=== PATIENT | male | born 1950 | race Caucasian/White ===

== ENCOUNTER → 2021-03-19 | Outpatient (CLI) | payer BC ==
--- NOTE | 2021-03-19 08:42 | US ---
EXAMINATION TYPE: US duplex aorta DATE OF EXAM: 03/19/2021 COMPARISON: NONE CLINICAL HISTORY: Z13.16 Screening for cardiovascular disorders. EXAM MEASUREMENTS: Abdominal Aorta: Proximal: 3.2 x 3.3 cm Mid: 2.8 x 3.0 cm Distal: 3.9 x 3.8 cm Bifurcation: rt, 1.8 x 2.0 cm lt 1.7 x 2.0 cm Proximal and distal AAA. 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 Th e larger aneurysm is in the distal abdominal aorta measuring up to 3.9 cm axially
== END | disposition home or self-care (01) ==
LOC: RADUSWWP 08:10
PROVIDERS: ATTEND Family Medicine
DX: I71.4 Abdominal aortic aneurysm, without rupture (principal)
CPT/HCPCS: 93979

== ENCOUNTER → 2021-03-25 | Outpatient (CLI) | payer BC ==
--- NOTE | 2021-03-26 13:12 | ECHOF ---
Referral Reason:I10 hypertension MEASUREMENTS -------- HEIGHT: 185.4 cm WEIGHT: 102.5 kg BP: 133/70 RVIDd: 3.4 cm (< 3.3) IVSd: 1.3 cm (0.6 - 1.1) LVIDd: 4.9 cm (3.9 - 5.3) LVPWd: 1.1 cm (0.6 - 1.1) IVSs: 1.8 cm LVIDs: 2.5 cm LVPWs: 1.6 cm LA Diam: 3.4 cm (2.7 - 3.8) LAESV Index (A-L): 30.28 ml/m Ao Diam: 4.1 cm (2.0 - 3.7) AV Cusp: 2.1 cm (1.5 - 2.6) MV EXCURSION: 15.271 mm (> 18.000) MV EF SLOPE: 73 mm/s (70 - 150) EPSS: 0.3 cm MV E Isidro: 1.05 m/s MV DecT: 263 ms MV A Isidro: 1.14 m/s MV E/A Ratio: 0.92 AV maxP.77 mmHg AV meanP.25 mmHg RAP: 5.00 mmHg RVSP: 32.02 mmHg FINDINGS -------- Sinus rhythm. This was a technically adequate study. The left ventricular size is normal. There is mild concentric left ventricular hypertrophy. Overa ll left ventricular systolic function is normal with, an EF between 60 - 65 %. The right ventricle is mildly enlarged. LA is midly dilated 29-33ml/m2. The right atrium is normal in size. Interatrial and interventricular septum intact. Aortic valve is trileaflet and is mildly thickened. There is trace to mild mitral regurgitation. Mild tricuspid regurgitation present. Right ventricular systolic pressure is normal at < 35 mmHg. There is no pulmonic regurgitation present. The aortic root is dilated measuring 4.1cm. Normal inferior vena cava with normal inspiratory collapse consistent with estimated right atrial pre ssure of 5 mmHg. There is no pericardial effusion. CONCLUSIONS -------- 1. The left ventricular size is normal. 2. There is mild concentric left ventricular hypertrophy. 3. Overall left ventricular systolic function is normal with, an EF between 60 - 65 %. 4. The right ventricle is mildly enlarged. 5. LA is midly dilated 29-33ml/m2. 6. Aortic valve is trileaflet and is mildly thickened. 7. There is trace to mild mitral regurgitation. 8. Mild tricuspid regurgitation present. 9. The aortic root is dilated measuring 4.1cm. 10. There is no pericardial effusion. LOG STACKER OPERATOR: Shital Hutchison RDCS
== END | disposition home or self-care (01) ==
LOC: RADECHMAIN 13:38
PROVIDERS: ATTEND Family Medicine
DX: I08.1 Rheumatic disorders of both mitral and tricuspid valves (principal); I10 Essential (primary) hypertension
CPT/HCPCS: 93306

== ENCOUNTER 2021-09-20 12:14 | Day surgery (SDC) | payer BC ==
[2021-09-19 11:00] VITALS: BMI 30.5
[2021-09-20 12:34] VITALS: TEMP 97
[2021-09-20] MEDS ORDERED: LACTATED RINGERS 1,000 ML IV ONE ×2 (12:37)
[2021-09-20] MEDS ORDERED: PROPOFOL 10 MG/ML 20 ML VIAL IV ONE (12:41)
--- NOTE | 2021-09-20 12:55 | P.PCN ---
Date of Procedure: 09/20/21 Procedure(s) Performed: BRIEF HISTORY: Patient is a 70-year-old pleasant white male scheduled for an elective colonoscopy as a part of screening for colorectal neoplasia. His last colonoscopy was 14 years ago PROCEDURE PERFORMED: Colonoscopy. PREOPERATIVE DIAGNOSIS: Screening for colon cancer. IV sedation per Anesthesia. PROCEDURE: After informed consent was obtained, the patient, was brought into the endoscopy unit. IV sedation was administered by Anesthesia under continuous monitoring. Digital rectal examination was normal. Initially the Olympus CF-160 flexible video colonoscope was then inserted in the rectum, gradually advanced into the cecum without any difficulty. Careful examination was performed as the scope was gradually being withdrawn. Ileocecal valve and the appendiceal orifice were visualized and appeared normal. Prep was excellent. Mucosa of the cecum, ascending colon, transverse colon, descending colon, sigmoid colon, and rectum appeared normal. Retroflexion was performed in the rectum and no lesions were seen. Moderate sigmoid diverticulosis. The patient tolerated the procedure well. IMPRESSION: Normal-appearing colon from rectum to cecum with no evidence of colorectal neoplasia . Moderate sigmoid diverticulosis. RECOMMENDATIONS: Findings of this examination were discussed with the patient as well as his family. He was advised to have a repeat screening colonoscopy.
[2021-09-20 13:04] VITALS: RESP 16
[2021-09-20 13:16] VITALS: BP 140/85; PULSE 54
== END 2021-09-20 13:28 ==
LOC: ORWHC2ENDO 12:14
PROVIDERS: ATTEND Internal Medicine Gastroenterology
DX: Z12.11 Encounter for screening for malignant neoplasm of colon (principal); K57.30 Diverticulosis of large intestine without perforation or abscess without bleeding; K21.9 Gastro-esophageal reflux disease without esophagitis; Z97.2 Presence of dental prosthetic device (complete) (partial); Z88.1 Allergy status to other antibiotic agents
CPT/HCPCS: J2704; G0121

== ENCOUNTER 2022-02-03 07:50 | Emergency (ER) | payer BC ==
[2022-02-03 07:54] VITALS: BP 153/78; PULSE 54; RESP 16; TEMP 98
--- NOTE | 2022-02-03 08:14 | ED ---
General Adult HPI - General Chief complaint: ENT Stated complaint: epistaxis Time Seen by Provider: 02/03/22 07:56 Source: patient, family, RN notes reviewed Mode of arrival: ambulatory Limitations: no limitations - History of Present Illness Initial comments: Patient is a pleasant 71-year-old male presenting to the emergency Department with epistaxis. Patient has had several episodes over the past 2-3 days. Recurrences on the right side. Patient has been recently and an out of air conditioning. Patient did bump his nose at work recently and questions if that could've precipitated the events. Patient does have history of epistaxis as a child however otherwise does not get frequently. No current bleeding. No bleeding from other sites. - Related Data Home Medications Medication Instructions Recorded Confirmed Cholecalciferol [Vitamin D3 (25 25 mcg PO DAILY 09/19/21 09/20/21 Mcg = 1000 Iu)] Cyanocobalamin (Vitamin B-12) 1,000 mcg PO DAILY 09/19/21 09/20/21 [Vitamin B-12] Milk Thistle 150 mg PO DAILY 09/19/21 09/20/21 Turmeric/Curcumin 1 tab PO DAILY 09/19/21 09/20/21 Allergies Allergy/AdvReac Type Severity Reaction Status Date / Time cephalexin [From Keflex] Allergy Rash/Hives Verified 02/03/22 07:52 Review of Systems ROS Statement: Those systems with pertinent positive or pertinent negative responses have been documented in the HPI. ROS Other: All systems not noted in ROS Statement are negative. Constitutional: Denies: fever Eyes: Denies: eye pain ENT: Reports: epistaxis. Denies: ear pain Respiratory: Denies: dyspnea Cardiovascular: Denies: chest pain Endocrine: Denies: fatigue Gastrointestinal: Denies: abdominal pain Genitourinary: Denies: dysuria Musculoskeletal: Denies: back pain Skin: Denies: rash Neurological: Denies: weakness Past Medical History Past Medical History: Osteoarthritis (OA) Additional Past Medical History / Comment(s): past hx. colon polyps History of Any Multi-Drug Resistant Organisms: None Reported Additional Past Surgical History / Comment(s): colonoscopy Past Anesthesia/Blood Transfusion Reactions: No Reported Reaction Smoking Status: Current every day smoker General Exam Limitations: no limitations General appearance: alert, in no apparent distress Head exam: Present: normocephalic Eye exam: Present: normal appearance ENT exam: Present: other (Mild dried blood right nares. Area anterior nasal septum with small clot.) Respiratory exam: Present: normal lung sounds bilaterally Cardiovascular Exam: Present: regular rate, normal rhythm GI/Abdominal exam: Present: soft. Absent: tenderness Extremities exam: Present: normal inspection Neurological exam: Present: alert Psychiatric exam: Present: normal affect, normal mood Skin exam: Present: normal color Course Vital Signs 02/03/22 07:52 Temperature 98 F Pulse Rate 54 L Respiratory 16 Rate Blood Pressure 153/78 O2 Sat by Pulse 98 Oximetry Medical Decision Making - Medical Decision Making Patient was offered packing however refuses. Education given on epistaxis as well as nasal clamp. Disposition Clinical Impression: Epistaxis Disposition: HOME SELF-CARE Condition: Stable Instructions (If sedation given, give patient instructions): Nosebleed (ED) Additional Instructions: Please follow-up with primary care physician in the next day or 2 for recheck. If bleeding recurs, apply nasal clamp for 10 minutes. Twice daily gently moisturize nasal septum with Vaseline. Return for increased bleeding, uncontrolled bleeding, bleeding from other areas, worsening symptoms or other concerns. Is patient prescribed a controlled substance at d/c from ED?: No Referrals: Chris Heath MD [Primary Care Provider] - 1-2 days Time of Disposition: 08:14
== END 2022-02-03 08:22 | disposition home or self-care (01) ==
LOC: EC 07:50
DX: R04.0 Epistaxis (principal); Z88.1 Allergy status to other antibiotic agents; F17.200 Nicotine dependence, unspecified, uncomplicated

== ENCOUNTER 2023-10-26 18:50 | Emergency (ER) | payer BC ==
[2023-10-26 19:14] VITALS: TEMP 97.8
--- NOTE | 2023-10-26 19:45 | ED ---
General Adult HPI - General Chief complaint: Headache Stated complaint: high BP headache Time Seen by Provider: 10/26/23 19:11 Source: patient Mode of arrival: ambulatory Limitations: no limitations - History of Present Illness Initial comments: 72-year-old male presenting to the ED with a chief complaint of hypertension. Patient states over the past 2 to 3 days has had a left-sided headache. Currently states that it is a 2-3 out of 10 in severity. Due to headache, his checked his blood pressure which was found to be elevated in the 200s syst olic. Therefore, prompting presentation to the ED for further evaluation. At this time, patient denies chest pain, shortness of breath, palpitations. He reports that he does not see his PCP on a regular basis. States that he does not have a history of headaches. Denies abdominal pain, nausea, vomiting. Denies dizziness, lightheadedness. No changes in bowel or bladder habits. No other complaints at this time. Upon obtaining history, blood pressure noted to be 157/109. - Related Data Home Medications Medication Instructions Recorded Confirmed Cholecalciferol [Vitamin D3 (25 25 mcg PO DAILY 09/19/21 09/20/21 Mcg = 1000 Iu)] Cyanocobalamin (Vitamin B-12) 1,000 mcg PO DAILY 09/19/21 09/20/21 [Vitamin B-12] Milk Thistle 150 mg PO DAILY 09/19/21 09/20/21 Turmeric/Curcumin 1 tab PO DAILY 09/19/21 09/20/21 Previous Rx's Medication Instructions Recorded amLODIPine [Norvasc] 5 mg PO DAILY #30 tab 10/27/23 Allergies Allergy/AdvReac Type Severity Reaction Status Date / Time cephalexin [From Keflex] Allergy Rash/Hives Verified 10/26/23 18:54 Review of Systems ROS Statement: Those systems with pertinent positive or pertinent negative responses have been documented in the HPI. ROS Other: All systems not noted in ROS Statement are negative. Past Medical History Past Medical History: Osteoarthritis (OA) Additional Past Medical History / Comment(s): past hx. colon polyps History of Any Multi-Drug Resistant Organisms: None Reported Additional Past Surgical History / Comment(s): colonoscopy Past Anesthesia/Blood Transfusion Reactions: No Reported Reaction Smoking Status: Current every day smoker Past Alcohol Use History: Occasional Past Drug Use History: None Reported General Exam Limitations: no limitations General appearance: alert, in no apparent distress Eye exam: Present: normal appearance, PERRL, EOMI ENT exam: Present: mucous membranes moist Neck exam: Present: normal inspection Respiratory exam: Present: normal lung sounds bilaterally Cardiovascular Exam: Present: regular rate, normal rhythm, systolic murmur GI/Abdominal exam: Present: soft, normal bowel sounds. Absent: distended, tenderness, guarding, rebound, rigid Neurological exam: Present: alert, oriented X3, CN II-XII intact (Kpmicj-on-[id number], lvea-[id number], rapid alternating hand movements intact.) Skin exam: Present: warm, dry Course Vital Signs 10/26/23 10/26/23 10/26/23 18:51 20:00 22:04 Temperature 97.8 F Pulse Rate 646 H 61 81 Respiratory 18 16 16 Rate Blood Pressure 212/95 164/92 158/85 O2 Sat by Pulse 96 97 94 L Oximetry Medical Decision Making - Medical Decision Making Was pt. sent in by a medical professional or institution (, PA, [place] MACHINE OPERATOR, urgent care, hospital, or senior care...) When possible be specific @ -No Did you speak to anyone other than the patient for history (EMS, parent, family, police, friend...)? What history was obtained from this source @ -No Did you review nursing and triage notes (agree or disagree)? Why? @ -I reviewed and agree with nursing and triage notes Were old charts reviewed (outside hosp., previous admission, EMS record, old EKG, old radiological studies, urgent care reports/EKG's, senior care records)? Report findings @ -No old charts were reviewed Differential Diagnosis (chest pain, altered mental status, abdominal pain women, abdominal pain men, vaginal bleeding, weakness, fever, dyspnea, syncope, headache, dizziness, GI bleed, back pain, seizure, CVA, palpatations, mental health, musculoskeletal)? @ -Differential Chest Pain: Stable Angina, Unstable Angina, STEMI, NSTEMI Aortic Dissection, Pneumothorax, Musculoskeletal, Esophageal Spasm GERD, Cholecystitis, Pancreatitis, Zoster, this is not meant to be an all-inclusive list. EKG interpreted by me (3pts min.). @ -EKG interpreted by me showing a sinus rhythm at 61 bpm with a first-degree AV block with a OR interval at 226 ms. QRS 102, QT/QTc 409/412. X-rays interpreted by me (1pt min.). @ -Chest x-ray interpreted by me showing mild cardiomegaly with some pulmonary vascular congestion. CT interpreted by me (1pt min.). @ -CT brain interpreted me which revealed no evidence of acute finding. U/S interpreted by me (1pt. min.). @ -None done What testing was considered but not performed or refused? (CT, X-rays, U/S, labs)? Why? @ -None What meds were considered but not given or refused? Why? @ -None Did you discuss the management of the patient with other professionals (gilberto arrieta i.e. , PA, [place] MACHINE OPERATOR, lab, RT, psych nurse, social worker aide, wallpaper embosser helper, teacher, technology officer, case therapist)? Give summary @ -No Was smoking cessation discussed for >3mins.? @ -No Was critical care preformed (if so, how long)? @ -No Were there social determinants of health that impacted care today? How? (Homelessness, low income, unemployed, alcoholism, drug addiction, transportation, low edu. Level, literacy, decrease access to med. care, snf, rehab)? @ -No Was there de-escalation of care discussed even if they declined (Discuss DNR or withdrawal of care, Hospice)? DNR status @ -No What co-morbidities impacted this encounter? (DM, HTN, Smoking, COPD, CAD, Cancer, CVA, ARF, Chemo, Hep., AIDS, mental health diagnosis, sleep apnea, morbid obesity)? @ -None Was patient admitted / discharged? Hospital course, mention meds given and route, prescriptions, significant lab abnormalities, going to OR and other pertinent info. @ -Discharge 72-year-old male presented to the ED with complaints of hypertension. Has had headache for the past 2 to 3 days which she reports is 2 out of 3 in severity however no history of prior headaches. Noted he took his blood pressure due to headache and found it to be in the 200s systolic prompting presentation to the ED for further evaluation. While here in the ED, his blood pressure has remained stable in the 160s systolic. Laboratory studies reviewed. Labs including CBC, CMP, UA, serology panel largely unremarkable. Troponin undetectable. Chest x-ray showed mild cardiomegaly with some pulmonary vascular congestion. On exam his lungs are largely clear and patient has no complaints of respiratory distress. CT brain revealed no evidence of acute finding. Discharged home in stable condition with prescription for amlodipine. Advise close follow-up with his primary care provider. Discussed return precautions with patient who verbalized agreement. Undiagnosed new problem with uncertain prognosis? @ -No Drug Therapy requiring intensive monitoring for toxicity (Heparin, Nitro, Insulin, Cardizem)? @ -No Were any procedures done? @ -No Diagnosis/symptom? @ -Headache, hypertension Acute, or Chronic, or Acute on Chronic? @ -Acute Uncomplicated (without systemic symptoms) or Complicated (systemic symptoms)? @ -Complicated Side effects of treatment? @ -No Exacerbation, Progression, or Severe Exacerbation? @ -No Poses a threat to life or bodily function? How? (Chest pain, USA, SC, pneumonia, PE, COPD, DKA, ARF, appy, cholecystitis, CVA, Diverticulitis, Homicidal, Suicidal, threat to staff... and all critical care pts) @ -Unlikely - Lab Data Result diagrams: 10/26/23 19:44 10/26/23 19:44 Lab Results 10/26/23 10/26/23 10/26/23 Range/Units 19:44 19:44 19:44 WBC 10.8 H (3.8-10.6) k/uL RBC 4.67 (4.30-5.90) m/uL Hgb 14.3 (13.0-17.5) gm/dL Hct 42.5 (39.0-53.0) % MCV 91.1 (80.0-100.0) fL MCH 30.7 (25.0-35.0) pg MCHC 33.7 (31.0-37.0) g/dL RDW 12.3 (11.5-15.5) % Plt Count 318 (150-450) k/uL MPV 7.4 Neutrophils % 78 % Lymphocytes % 14 % Monocytes % 5 % Eosinophils % 1 % Basophils % 1 % Neutrophils # 8.5 H (1.3-7.7) k/uL Lymphocytes # 1.5 (1.0-4.8) k/uL Monocytes # 0.5 (0-1.0) k/uL Eosinophils # 0.1 (0-0.7) k/uL Basophils # 0.1 (0-0.2) k/uL PT 11.3 (10.0-12.5) sec INR 1.0 (<1.2) APTT 29.6 (22.0-30.0) sec Sodium 135 L (137-145) mmol/L Potassium 3.8 (3.5-5.1) mmol/L Chloride 101 (98-107) mmol/L Carbon Dioxide 28 (22-30) mmol/L Anion Gap 6 mmol/L BUN 17 (9-20) mg/dL Creatinine 0.77 (0.66-1.25) mg/dL Est GFR (CKD-EPI)AfAm >90 (>60 ml/min/1.73 sqM) Est GFR (CKD-EPI)NonAf >90 (>60 ml/min/1.73 sqM) Glucose 101 H (74-99) mg/dL Calcium 8.9 (8.4-10.2) mg/dL Magnesium 1.9 (1.6-2.3) mg/dL Total Bilirubin 0.7 (0.2-1.3) mg/dL AST 23 (17-59) U/L ALT 13 (4-49) U/L Alkaline Phosphatase 67 (38-126) U/L Troponin I (0.000-0.034) ng/mL Total Protein 6.7 (6.3-8.2) g/dL Albumin 3.8 (3.5-5.0) g/dL Urine Color Urine Appearance (Clear) Urine pH (5.0-8.0) Ur Specific [place] (1.001-1.035) Urine Protein (Negative) Urine Glucose (UA) (Negative) Urine Ketones (Negative) Urine Blood (Negative) Urine Nitrite (Negative) Urine Bilirubin (Negative) Urine Urobilinogen (<2.0) mg/dL Ur Leukocyte Esterase (Negative) Urine RBC (0-5) /hpf Urine WBC (0-5) /hpf Urine Mucus (None) /hpf Influenza Type A (PCR) (Not Detectd) Influenza Type B (PCR) (Not Detectd) RSV (PCR) (Not Detectd) SARS-CoV-2 (PCR) (Not Detectd) 10/26/23 10/26/23 10/26/23 Range/Units 19:44 19:44 20:00 WBC (3.8-10.6) k/uL RBC (4.30-5.90) m/uL Hgb (13.0-17.5) gm/dL Hct (39.0-53.0) % MCV (80.0-100.0) fL MCH (25.0-35.0) pg MCHC (31.0-37.0) g/dL RDW (11.5-15.5) % Plt Count (150-450) k/uL MPV Neutrophils % % Lymphocytes % % Monocytes % % Eosinophils % % Basophils % % Neutrophils # (1.3-7.7) k/uL Lymphocytes # (1.0-4.8) k/uL Monocytes # (0-1.0) k/uL Eosinophils # (0-0.7) k/uL Basophils # (0-0.2) k/uL PT (10.0-12.5) sec INR (<1.2) APTT (22.0-30.0) sec Sodium (137-145) mmol/L Potassium (3.5-5.1) mmol/L Chloride (98-107) mmol/L Carbon Dioxide (22-30) mmol/L Anion Gap mmol/L BUN (9-20) mg/dL Creatinine (0.66-1.25) mg/dL Est GFR (CKD-EPI)AfAm (>60 ml/min/1.73 sqM) Est GFR (CKD-EPI)NonAf (>60 ml/min/1.73 sqM) Glucose (74-99) mg/dL Calcium (8.4-10.2) mg/dL Magnesium (1.6-2.3) mg/dL Total Bilirubin (0.2-1.3) mg/dL AST (17-59) U/L ALT (4-49) U/L Alkaline Phosphatase (38-126) U/L Troponin I <0.012 (0.000-0.034) ng/mL Total Protein (6.3-8.2) g/dL Albumin (3.5-5.0) g/dL Urine Color Light Yellow Urine Appearance Clear (Clear) Urine pH 6.0 (5.0-8.0) Ur Specific [place] 1.013 (1.001-1.035) Urine Protein 1+ H (Negative) Urine Glucose (UA) Negative (Negative) Urine Ketones Negative (Negative) Urine Blood Negative (Negative) Urine Nitrite Negative (Negative) Urine Bilirubin Negative (Negative) Urine Urobilinogen <2.0 (<2.0) mg/dL Ur Leukocyte Esterase Negative (Negative) Urine RBC 1 (0-5) /hpf Urine WBC 1 (0-5) /hpf Urine Mucus Rare H (None) /hpf Influenza Type A (PCR) Not Detected (Not Detectd) Influenza Type B (PCR) Not Detected (Not Detectd) RSV (PCR) Not Detected (Not Detectd) SARS-CoV-2 (PCR) Not Detected (Not Detectd) Disposition Clinical Impression: Hypertension, Headache Disposition: HOME SELF-CARE Condition: Good Instructions (If sedation given, give patient instructions): Hypertensive Crisis (ED) Additional Instructions: Please return to the Emergency Department if symptoms worsen or any other concerns. Please follow-up with your primary care provider. Prescriptions: amLODIPine [Norvasc] 5 mg PO DAILY #30 tab Is patient prescribed a controlled substance at d/c from ED?: No Referrals: Chris Heath MD [Primary Care Provider] - 1-2 days Time of Disposition: 00:53
[2023-10-26 19:51] LABS: Basophils # (A) 0.1 k/uL (0-0.2); Basophils % (A) 1 %; Eosinophils # (A) 0.1 k/uL (0-0.7); Eosinophils % (A) 1 %; HCT 42.5 % (39.0-53.0); HGB 14.3 gm/dL (13.0-17.5); Lymphocytes # (A) 1.5 k/uL (1.0-4.8); Lymphocytes % (A) 14 %; MCH 30.7 pg (25.0-35.0); MCHC 33.7 g/dL (31.0-37.0); MCV 91.1 fL (80.0-100.0); Mean Platelet Volume 7.4; Monocytes # (A) 0.5 k/uL (0-1.0); Monocytes % (A) 5 %; Neutrophils # (A) 8.5 k/uL (1.3-7.7); Neutrophils % (A) 78 %; Platelet Count 318 k/uL (150-450); RBC 4.67 m/uL (4.30-5.90); RDW 12.3 % (11.5-15.5); WBC 10.8 k/uL (3.8-10.6)
[2023-10-26 20:01] LABS: ALT 13 U/L (4-49); AST 23 U/L (17-59); African American GFR (CKD) >90 (>60 ml/min/1.73 sqM); Albumin 3.8 g/dL (3.5-5.0); Alkaline Phosphatase 67 U/L (38-126); Anion Gap 6 mmol/L; Blood Urea Nitrogen 17 mg/dL (9-20); Calcium 8.9 mg/dL (8.4-10.2); Carbon Dioxide 28 mmol/L (22-30); Chloride 101 mmol/L (98-107); Glucose 101 mg/dL (74-99); Magnesium 1.9 mg/dL (1.6-2.3); Non-African American GFR(CKD) >90 (>60 ml/min/1.73 sqM); Potassium 3.8 mmol/L (3.5-5.1); Sodium 135 mmol/L (137-145); Total Bilirubin 0.7 mg/dL (0.2-1.3); Total Protein 6.7 g/dL (6.3-8.2)
[2023-10-26 20:14] LABS: Partial Thromboplastin Time 29.6 sec (22.0-30.0); Prothrombin Time 11.3 sec (10.0-12.5)
[2023-10-26 20:25] LABS: Appearance,Urine Clear (Clear); Bilirubin,Urine Negative (Negative); Blood,Urine Negative (Negative); Color,Urine Light Yellow; Glucose,Urine (UA) Negative (Negative); Ketones,Urine Negative (Negative); Leukocyte Esterase,Urine Negative (Negative); Mucus,Urine Rare /hpf; Nitrite,Urine Negative (Negative); Protein,Urine 1+ (Negative); RBC,Urine 1 /hpf (0-5); Specific Gravity,Urine 1.013 (1.001-1.035); Urobilinogen,Urine <2.0 mg/dL (<2.0); WBC,Urine 1 /hpf (0-5)
--- NOTE | 2023-10-26 22:13 | CT ---
EXAMINATION TYPE: CT brain wo con CT DLP: 1148.4 mGycm, Automated exposure control for dose reduction was used. DATE OF EXAM: 10/26/2023 9:45 PM COMPARISON: None. CLINICAL INDICATION:Male, 72 years old with history of left sided YODER, pt states he has a sinus headac he, checked bp at home and it was high. no hx of htn TECHNIQUE: Brain: Axial CT images of the brain were obtained with coronal and sagittal reformats created and rev iewed. Contrast used: None. Oral contrast used: None. FINDINGS: Extra-axial spaces: No abnormal extra-axial fluid collections. Ventricular system: Ventricles appear dilated in proportion to the degree of cerebral atrophy. Cerebral parenchyma: No increased attenuation to suggest acute intraparenchymal hemorrhage. The gra y-white matter interface appears maintained. Mild/moderate generalized brain atrophy. Scattered hyp oattenuating areas are seen within the cerebral white matter, nonspecific but most often seen with ch ronic microvascular ischemic changes; mild/moderate in degree. Cerebellum: No acute abnormality. Mass effect: No evidence of mass effect or midline shift. Intracranial vasculature: Atherosclerotic calcifications of the larger arteries near the skull base. Soft tissues: No acute or concerning abnormality. Visualized orbits: Orbital contents appear grossly intact. Calvarium/osseous structures: No evidence of calvarial fracture. Paranasal sinuses and mastoid air cells: Clear. Nasal septal deviation towards the left with osseous spur in its midportion. MRI is more sensitive for detecting acute processes such as infarct, and may be considered if clinica lly warranted. IMPRESSION: 1. No CT evidence of an acute intracranial abnormality. 2. Atrophy and chronic microvascular ischemic white matter changes.
--- NOTE | 2023-10-27 00:19 | XR ---
EXAMINATION TYPE: XR chest 2V DATE OF EXAM: 10/26/2023 8:08 PM CLINICAL INDICATION:Male, 72 years old with history of hypertensive urgency; [facility] COMPARISON: None TECHNIQUE: XR chest 2V. Frontal and lateral views of the chest.. FINDINGS: Lines/Tubes/Devices: No indwelling lines are seen. EKG leads overlie the chest. Heart/mediastinum: Heart appears mildly enlarged. Tortuous aorta with atherosclerotic calcification. Pulmonary vascularity: Pulmonary vascular congestion. Increased interstitial markings can be seen wit h edema or pneumonitis. An element of chronic change is possible. Lungs/Pleura: There is no evidence of pleural effusion, focal consolidation, or pneumothorax. Musculoskeletal: No acute osseous abnormality demonstrated in the limits of the exam. Other findings: None. IMPRESSION: Mild cardiomegaly, with mild central vascular congestive changes.
[2023-10-27 01:28] VITALS: BP 152/93; PULSE 73; RESP 18
== END 2023-10-27 01:04 | disposition home or self-care (01) ==
LOC: EC 18:50
DX: I11.9 Hypertensive heart disease without heart failure (principal); I44.30 Unspecified atrioventricular block; F17.200 Nicotine dependence, unspecified, uncomplicated; Z88.1 Allergy status to other antibiotic agents
CPT/HCPCS: 36415; 70450; 71046; 80053; 81001; 83735; 84484; 85025; 85610; 85730; 87636; 93005; 99285

== ENCOUNTER → 2023-11-13 | Outpatient (CLI) | payer BC ==
--- NOTE | 2023-11-13 10:51 | US ---
EXAMINATION TYPE: US duplex aorta DATE OF EXAM: 11/13/2023 COMPARISON: 03/19/2021 CLINICAL INDICATION: Male, 72 years old with history of I71.40 ABDOMINAL AORTIC ANEURYSM, WITHOUT RUP TURE,; Hx AAA measuring 3.9 cm in 2020. Smoker, hypertension. TECHNIQUE: Multiple sonographic images of the abdominal aorta are obtained. FINDINGS: EXAM MEASUREMENTS: Abdominal Aorta: Proximal: 3.6 x 2.9 cm Mid: 3.3 x 3.7 cm Distal: 4.4 x 4.7 cm Bifurcation: Right Iliac: 1.4 x 1.3 cm Left Iliac: 1.4 x x 1.6 cm ASSOCIATE SCIENTIST NOTES: Aneurysm seen prox, mid, and distal aorta. Distal aorta measures 4.4 in AP and 4. 7 in width. Left iliac artery is slightly dilated. Exam is limited due to gas. IMPRESSION: Aorta dilation up to 4.7 cm distally. Further evaluation with CTA of the aorta is recommended.
--- NOTE | 2023-11-13 17:02 | CA ---
Transthoracic Echo Report Name: Thomas Medellin Age: 72 Gender: M : 1950 Exam Date: 11/13/2023 10:44 Exam Location: [place] Ht (in): 73 Wt (lb): 218 Ordering Physician: Chris Heath MD Attending/Referring Phys: Lor Crawford [facility] At Risk Specialist Ina Long RDCS Procedure CPT: Indications: I10 hypertention Cardiac Hx: Technical Quality: Contrast 1: Total Dose (mL): Contrast 2: Total Dose (mL): MEASUREMENTS (Male / Female) Normal Values 2D ECHO LV Diastolic Diameter PLAX 4.4 cm 4.2 - 5.9 / 3.9 - 5.3 cm LV Systolic Diameter PLAX 3.4 cm IVS Diastolic Thickness 1.4 cm 0.6 - 1.0 / 0.6 - 0.9 cm LVPW Diastolic Thickness 1.4 cm 0.6 - 1.0 / 0.6 - 0.9 cm LV Relative Wall Thickness 0.6 RV Internal Dim ED PLAX 2.7 cm Aortic Root Diameter 3.8 cm LA Systolic Diameter LX 2.7 cm 3.0 - 4.0 / 2.7 - 3.8 cm LV Diastolic Volume MOD BP 117.2 cm??? 67 - 155 / 56 - 104 cm??? LV Systolic Volume MOD BP 51.0 cm??? - 58 / 19 - 49 cm??? LV Ejection Fraction MOD BP 56.5 % >= 55 % LV Cardiac Index MOD BP 1454.2 cm???/min???m??? LV Diastolic Volume MOD 4C 124.6 cm??? LV Systolic Volume MOD 4C 57.1 cm??? LV Ejection Fraction MOD 4C 54.2 % LV Cardiac Index MOD 4C 1482.8 cm???/min???m??? LV Diastolic Length 4C 8.5 cm LV Systolic Length 4C 7.3 cm LV Diastolic Volume MOD 2C 110.5 cm??? LV Systolic Volume MOD 2C 43.4 cm??? LV Ejection Fraction MOD 2C 60.8 % LV Cardiac Index MOD 2C 1475.8 cm???/min???m??? LV Diastolic Length 2C 8.3 cm LV Systolic Length 2C 6.9 cm LA Volume 44.7 cm??? 18 - 58 / 22 - 52 cm??? LA Volume Index 19.7 cm???/m??? 16 - 28 cm???/m??? M-MODE Aortic Root Diameter MM 3.9 cm LA Systolic Diameter MM 2.5 cm LA Ao Ratio MM 0.7 DOPPLER AV Peak Velocity 176.4 cm/s AV Peak Gradient 12.4 mmHg LVOT Peak Velocity 113.8 cm/s LVOT Peak Gradient 5.2 mmHg LVOT Velocity Time Integral 25.6 cm MV Area PHT 2.5 cm??? Mitral E Point Velocity 66.3 cm/s Mitral A Point Velocity 86.2 cm/s Mitral E to A Ratio 0.8 MV Deceleration Time 298.3 ms MV E' Velocity 6.5 cm/s Mitral E to MV E' Ratio 10.2 TR Peak Velocity 211.5 cm/s TR Peak Gradient 17.9 mmHg Right Ventricular Systolic Press 22.6 mmHg FINDINGS Left Ventricle Left ventricular ejection fraction is estimated at 55-60 %. Moderately increased septal wall thickness. Normal left ventricular systolic function with no obvious regional wall motion abnormalities. Left ventricular cavity size normal. Right Ventricle Normal right ventricular size and function. Right Atrium Normal right atrial size. Left Atrium Left atrial size at the upper limits of normal. Mitral Valve Structurally normal mitral valve. Mild mitral regurgitation. Aortic Valve Trileaflet aortic valve. Focal thickening of the aortic valve cusps. Aortic valve sclerosis. No aortic regurgitation. No aortic stenosis. Tricuspid Valve Structurally normal tricuspid valve. Mild tricuspid regurgitation. No evidence of pulmonary hypertension. Pulmonic Valve Structurally normal pulmonic valve. No pulmonic stenosis. Trace pulmonic regurgitation. Pericardium Normal pericardium. Aorta Mildly dilated aortic annulus. CONCLUSIONS Normal LV function Aortic sclerosis without significant stenosis Aortic valve leaflet appears thickened and calcified Previewed by: Dr. Ashok Romero MD (Electronically Signed) Final Date: 13 November 2023 17:01
== END | disposition home or self-care (01) ==
LOC: RADUSWWP 10:06
PROVIDERS: ATTEND Family Medicine
DX: I71.40 Abdominal aortic aneurysm, without rupture, unspecified (principal); I35.8 Other nonrheumatic aortic valve disorders; I10 Essential (primary) hypertension; F17.200 Nicotine dependence, unspecified, uncomplicated
CPT/HCPCS: 93306; 93979

== ENCOUNTER → 2023-11-20 | Outpatient (CLI) | payer BC ==
[2023-11-20 15:42] LABS: African American GFR (CKD) >90 (>60 ml/min/1.73 sqM); Blood Urea Nitrogen 16 mg/dL (9-20); Non-African American GFR(CKD) >90 (>60 ml/min/1.73 sqM)
--- NOTE | 2023-11-20 19:01 | CT ---
CTA CHEST EXAMINATION TYPE: CT angio chest DATE OF EXAM: 11/20/2023 INDICATION: Aortic aneurysm of unspecified site w/o rupture. CT DLP: 948.6 mGycm, Automated exposure control for dose reduction was used. CONTRAST: Patient injected with 100ml mL of Isovue 370. COMPARISON: None TECHNIQUE: CT of the chest is performed on a spiral scan at 2 mm thick sections. Study is performed with intravenous contrast timed for evaluation for aorta.. This will limit additional portions of th e evaluation. FINDINGS: No persistent filling defects are evident to suggest an acute pulmonary embolism. No mediastinal or hilar adenopathy enlarged by CT criteria is evident. Aortic root measures 3.4 cm. The ascending aorta diameter at the level of the main pulmonary artery i s 3.9 cm. The main pulmonary artery diameter at the bifurcation is 3.1 cm. Transverse dimension aor tic arch 2.9 cm. Posterior aortic arch appears somewhat prominent measuring 3.9 cm. This tapers in th e descending thoracic aorta. Thoracic aorta at the diaphragm measures 3.2 cm. 3-D reconstructed images of the thoracic aorta are performed. There is a three-vessel arch. There is a normal density which measures 0.9 cm in length posterior right apex. Series [address] sections were through the upper abdomen. There is partial visualization of a abdominal aortic aneurysm measuring 4.2 cm. This extends out of t he field of view. Recommend CT abdomen and pelvis with contrast to evaluate the abdominal aortic aneu rysm. IMPRESSION: 1. Some fusiform prominence of the thoracic aorta. Ascending thoracic aorta measures 3.9 cm as does t he posterior portion of the aortic arch. 2. Partial visualization of an abdominal aortic aneurysm of 4.[address] abdomen and pelvis with contra st for evaluation of the abdominal aortic aneurysm is recommended. 3. Small density posterior right apex. Follow-up CT chest in 6 months can be performed to evaluate fo r stability.
== END | disposition home or self-care (01) ==
LOC: RADCTMAIN 14:51
PROVIDERS: ATTEND Family Medicine
DX: I71.21 Aneurysm of the ascending aorta, without rupture (principal); I71.40 Abdominal aortic aneurysm, without rupture, unspecified; J98.4 Other disorders of lung
CPT/HCPCS: 82565; 84520; 71275; 36415; Q9967